=== PATIENT | female | born 1960 | race Caucasian/White ===

== ENCOUNTER → 2020-01-09 | Outpatient (CLI) | payer BC ==
[~2020-01-09] MED LIST: ATORVASTATIN CA80 MG PO; CLON0.5T4 PO; LEVO125T5 PO; PRAM2.252 PO; TRAZ-125 PO; VENL75TA PO
== END ==
LOC: LAB 10:41
PROVIDERS: ATTEND Registered Nurse
DX: Z01.812 Encounter for preprocedural laboratory examination (principal); Z20.828 Contact with and (suspected) exposure to other viral communicable diseases
CPT/HCPCS: U0003-CS

== ENCOUNTER → 2020-01-12 | Day surgery (SDC) | payer BC ==
[~2020-01-12] MED LIST changes: +IPRATRPIUM/ALBUTEROL 0.5/2.5MG 3 ML NEBU. NEB PRN; +IV RINGERS SOLUTION,LACTATED 1,000 ML IV SCH; +LIDOCAINE 2% PF 5 ML VIAL. ONE; +MIDAZOLAM HCL PF 2 MG/2 ML VIAL. IV ONE; +ONDANSETRON PF 4 MG/2 ML VIAL. IV PRN; +PROPOFOL 10,000 MCG/ML (20ML) VIAL IV ONE
[2020-01-12 09:30] VITALS: BP 112/73
--- NOTE | 2020-01-16 15:09 | PATHOLOGY ---
[facility] Accession Number: [id number] . 01 Material submitted: . colon - TRANSVERSE POLYP. Modifiers: transverse . 02 Diagnosis: Colon biopsy, transverse colon polyp: - Hyperplastic polyp/prominent mucosal fold. - Melanosis coli. (JPM:christiano; 01/16/2020) QMS 01/16/2020 1024 Local . 02 Comment: There are no adenomatous changes or evidence of malignancy. (JPM:christiano; 01/16/2020) . 02 Electronically signed: . Nabil Jim MD, Pathologist NPI- [id number] . 01 Gross description: . The specimen is received in formalin, labeled "Depuy, Emilia, transverse polyp" and consists of a fragment of brown tissue measuring 0.3 x 0.3 cm which is entirely submitted in A1. (SDY; 01/13/2020) SYU/SYU 01/13/2020 1347 Local . 02 Pathologist provided ICD-10: K63.5, K63.89 . 02 CPT . 666096 Specimen Comment: A courtesy copy of this report has been sent to [phone], [phone] Specimen Comment: [phone] Specimen Comment: Report sent to / DR COYLE Performed at: 01 [facility] [address], [place], [place] [id number] MD Jj Torres MD Phone: [phone] Performed at: 02 [facility] [address] [place], [place] [id number] MD Nabil Jim MD Phone: [phone]
== END | disposition home or self-care (01) ==
LOC: SURG 07:36
PROVIDERS: ATTEND Internal Medicine Gastroenterology
DX: Z12.11 Encounter for screening for malignant neoplasm of colon (principal); K63.5 Polyp of colon; K63.89 Other specified diseases of intestine; K57.30 Diverticulosis of large intestine without perforation or abscess without bleeding; E78.00 Pure hypercholesterolemia, unspecified; G43.909 Migraine, unspecified, not intractable, without status migrainosus; F32.9 Major depressive disorder, single episode, unspecified; E89.0 Postprocedural hypothyroidism; Z88.0 Allergy status to penicillin; Z88.8 Allergy status to other drugs, medicaments and biological substances; Z83.71 Family history of colonic polyps; Z86.010 Personal history of colon polyps; Z98.0 Intestinal bypass and anastomosis status; Z79.899 Other long term (current) drug therapy; Z80.0 Family history of malignant neoplasm of digestive organs; Z90.710 Acquired absence of both cervix and uterus; Z98.890 Other specified postprocedural states
CPT/HCPCS: 45380; J2001; J2704; J7120